=== PATIENT | female | born 1965 | race American Indian/Alaskan Native ===

== ENCOUNTER 2016-03-13 10:39 | Emergency (ER) | payer OTHER ==
--- NOTE | 2016-03-13 11:45 | Emergency Department Report ---
- General Chief Complaint: Upper Respiratory Infection Stated Complaint: PAINFUL LUNGS Time Seen by Provider: 03/13/16 11:23 Source: patient, family Mode of arrival: Ambulatory Limitations: No Limitations - History of Present Illness MD Complaint: fever, cough -: Gradual - Related Data Previous Rx's Medication Instructions Recorded Last Taken Type HYDROcodone/APAP 5-325 [[place] 1 - 2 each PO Q6HR PRN #12 tablet 09/25/15 Unknown Rx 5/325] Ondansetron [Zofran ODT TAB] 8 mg PO Q8HR #20 tab.rapdis 09/25/15 Unknown Rx ALBUTEROL Inhaler [ProAir HFA 2 puff IH QID PRN #1 inhalation 03/13/16 Unknown Rx Inhaler] Azithromycin [Zithromax Z-WILLIAM] 250 mg PO QDAY #6 tablet 03/13/16 Unknown Rx Allergies Allergy/AdvReac Type Severity Reaction Status Date / Time codeine Allergy Rash Verified 03/22/15 11:56 amoxicillin trihydrate AdvReac Rash Verified 03/22/15 11:57 [From Augmentin] potassium clavulanate AdvReac Rash Verified 03/22/15 11:57 [From Augmentin] ED Review of Systems ROS: Stated complaint: PAINFUL LUNGS Other details as noted in HPI Constitutional: chills, fever Eyes: denies: eye pain, eye discharge, vision change ENT: denies: ear pain, throat pain Respiratory: cough Cardiovascular: denies: chest pain, palpitations Endocrine: no symptoms reported Gastrointestinal: denies: abdominal pain, nausea, diarrhea Genitourinary: denies: urgency, dysuria, discharge Musculoskeletal: denies: back pain, joint swelling, arthralgia, myalgia Skin: denies: rash, lesions Neurological: denies: headache ED Past Medical Hx - Past Medical History Previous Medical History?: Yes Hx Asthma: Yes - Surgical History Past Surgical History?: No Additional Surgical History: Stomach (exploratory laparotomy) - Social History Smoking Status: Never Smoker Substance Use Type: None - Medications Home Medications: Home Medications Medication Instructions Recorded Confirmed Last Taken Type HYDROcodone/APAP 5-325 [[place] 1 - 2 each PO Q6HR PRN #12 tablet 09/25/15 Unknown Rx 5/325] Ondansetron [Zofran ODT TAB] 8 mg PO Q8HR #20 tab.rapdis 09/25/15 Unknown Rx ALBUTEROL Inhaler [ProAir HFA 2 puff IH QID PRN #1 inhalation 03/13/16 Unknown Rx Inhaler] Azithromycin [Zithromax Z-WILLIAM] 250 mg PO QDAY #6 tablet 03/13/16 Unknown Rx ED Physical Exam - General Limitations: No Limitations General appearance: alert, in no apparent distress - Head Head exam: Present: atraumatic, normocephalic - Eye Eye exam: Present: normal appearance - ENT ENT exam: Present: mucous membranes moist - Neck Neck exam: Present: normal inspection - Respiratory Respiratory exam: Present: normal lung sounds bilaterally. Absent: respiratory distress, wheezes, rales, rhonchi, stridor, accessory muscle use, decreased breath sounds, prolonged expiratory - Cardiovascular Cardiovascular Exam: Present: regular rate - Back Exam Back exam: Absent: CVA tenderness (R), CVA tenderness (L) - Neurological Exam Neurological exam: Present: alert, oriented X3 ED Course Vital Signs 03/13/16 10:48 Temperature 98.1 F Pulse Rate 69 Respiratory 16 Rate Blood Pressure 109/72 O2 Sat by Pulse 100 Oximetry Critical care attestation.: If time is entered above; I have spent that time in minutes in the direct care of this critically ill patient, excluding procedure time. ED Disposition Clinical Impression: URI (upper respiratory infection) Disposition: DISCHARGED TO HOME OR SELFCARE Is pt being admited?: No Does the pt Need Aspirin: No Condition: Stable Instructions: Upper Respiratory Infection (ED) Prescriptions: ALBUTEROL Inhaler [ProAir HFA Inhaler] 2 puff IH QID PRN #1 inhalation PRN Reason: Shortness Of Breath Azithromycin [Zithromax Z-WILLIAM] 250 mg PO QDAY #6 tablet Referrals: PRIMARY CARE, [Primary Care Provider] - 3-5 Days Forms: Work/School Release Form(ED)
[2016-03-13 11:58] VITALS: BP 145/78
--- NOTE | 2016-03-13 12:49 | XRay Report ---
Chest 2 views: Compared to 03/22/15. History: Cough. Findings: Normal cardiomediastinal silhouette. Trachea is midline. No consolidation, pneumothorax or pleural effusion. Impression: No acute cardiopulmonary findings.
== END 2016-03-13 11:47 | disposition home or self-care (01) ==
LOC: ED 10:39
DX: J06.9 Acute upper respiratory infection, unspecified (principal); J45.909 Unspecified asthma, uncomplicated
CPT/HCPCS: 71020

== ENCOUNTER 2016-03-30 08:08 | Emergency (ER) | payer SELFPAY ==
[2016-03-30 09:29] LABS: Hematocrit 34.4 % (30.3-42.9); Hemoglobin 10.7 gm/dl (10.1-14.3); Mean Corpuscular HGB Conc 31 % (30-34); Mean Corpuscular Hemoglobin 24 pg (28-32); Mean Corpuscular Volume 78 fl (79-97); Platelet Count 177 K/mm3 (140-440); Red Cell Distribution Width 14.4 % (13.2-15.2); White Blood Count 3.1 K/mm3 (4.5-11.0)
[2016-03-30 09:45] LABS: Anion Gap 17 mmol/L; BUN/Creatinine Ratio 15.71; Blood Urea Nitrogen 11 mg/dL (7-17); Calcium 8.3 mg/dL (8.4-10.2); Carbon Dioxide 24 mmol/L (22-30); Glucose 69 mg/dL (65-100); Potassium 4.2 mmol/L (3.6-5.0); Sodium 139 mmol/L (137-145)
[2016-03-30 09:51] LABS: INR 0.98 (0.87-1.13)
[2016-03-30 09:52] LABS: Partial Thromboplastin Time 25.7 Sec. (24.2-36.6)
[2016-03-30 10:03] LABS: Basophils % (Manual) 0 % (0.0-1.8); Blastocytes % (Manual) 0 %
[2016-03-30 10:04] LABS: Hypochromasia 1+
[2016-03-30 10:05] LABS: Diff Status Complete; Elliptocytes 1+; Platelet Estimate Appears Decreased; Poikilocytosis 1+
--- NOTE | 2016-03-30 10:06 | Cat Scan Report ---
CT HEAD WITHOUT CONTRAST: HISTORY: Neurological deficits, syncope. Serial contiguous axial images were obtained through the cranium. Intravenous contrast material was not administered. The ventricles are normal in size and appearance. There is no mass effect or midline shift. No areas of abnormally increased or decreased attenuation are seen. No mass lesion is seen. The mastoid air cells and visualized portions of the sinuses are normal. A single left ethmoid air cell is opacified. IMPRESSION: Cranial CT scan within normal limits. No significant change since 09/25/15.
[2016-03-30] MEDS ORDERED: NACL 0.9% 1000 ML 1,000 ML IV ONE (16:59)
[2016-03-30] MEDS ORDERED: TYLENOL PO ONE (17:02)
[2016-03-30] MEDS ORDERED: ZOFRAN ODT PO ONE (17:02)
[2016-03-30 18:15] VITALS: BP 99/54
--- NOTE | 2016-03-30 19:14 | Emergency Department Report ---
HPI - General Chief Complaint: Syncope Time Seen by Provider: 03/30/16 16:41 - HPI HPI: The patient is a 50-year-old female who presents for evaluation of lightheadedness. The patient reports on and off lightheadedness for the past 3 days, exacerbated with standing and exertion, moderate to severe, improved with sitting and lying down and rest. She shares that she passed out 3 days ago after walking back from her bathroom in [place]. She also reports a mild achy generalized headache constant since her accident. The patient denies fever, neck pain, chest pain, dyspnea, abdominal pain, hemoptysis, unilateral leg swelling, recent immobilization, history of DVT or PE, recent cancer. ED Past Medical Hx - Past Medical History Hx Asthma: Yes - Surgical History Additional Surgical History: Stomach (exploratory laparotomy) - Social History Smoking Status: Never Smoker Substance Use Type: None - Medications Home Medications: Home Medications Medication Instructions Recorded Confirmed Last Taken Type HYDROcodone/APAP 5-325 [[place] 1 - 2 each PO Q6HR PRN #12 tablet 09/25/15 Unknown Rx 5/325] Ondansetron [Zofran ODT TAB] 8 mg PO Q8HR #20 tab.rapdis 09/25/15 Unknown Rx ALBUTEROL Inhaler [ProAir HFA 2 puff IH QID PRN #1 inhalation 03/13/16 Unknown Rx Inhaler] Azithromycin [Zithromax Z-WILLIAM] 250 mg PO QDAY #6 tablet 03/13/16 Unknown Rx ED Review of Systems ROS: Stated complaint: PASSED OUT 3 DAYS AGO Other details as noted in HPI Constitutional: denies: fever; reports lightheadedness and syncope ENT: denies: throat or neck pain Respiratory: denies: cough, shortness of breath Cardiovascular: denies: chest pain Endocrine: denies unexplained weight loss or gain Gastrointestinal: denies: abdominal pain, nausea Genitourinary: denies: dysuria Musculoskeletal: denies: leg swelling Skin: denies: rash Neurological: denies: headache Hematological/Lymphatic: denies: easy bleeding or easy bruising Psych: denies sadness or hopelessness Physical Exam - Physical Exam Vital Signs: Vital Signs 03/30/16 03/30/16 08:55 17:26 Temperature 98.7 F Pulse Rate 68 Respiratory 18 14 Rate Blood Pressure 97/51 O2 Sat by Pulse 100 Oximetry Physical Exam: General: well-nourished, well-developed, no acute distress Head: Normocephalic, atraumatic Eyes: normal sclera, EOMI, PERRL ENT: Mucous membranes are pale and dry Neck: No neck stiffness, no cervical adenopathy Respiratory: Breath sounds equal bilaterally, no wheezing, rales, or rhonchi Cardio: S1 and S2 present, no murmurs, rubs, gallops, capillary refill is delayed Abdomen: Normoactive bowel sounds, soft abdomen, no rigidity, no guarding or rebound tenderness Musc: No pitting edema Skin: No rash Neuro: Alert oriented 3, no facial drooping, normal speech, no sensation and motor deficit in the arms or legs, reflexes 2+ symmetric on DTR testing, no neuro deficits Psych: Normal affect ED Course Vital Signs 03/30/16 03/30/16 08:55 17:26 Temperature 98.7 F Pulse Rate 68 Respiratory 18 14 Rate Blood Pressure 97/51 O2 Sat by Pulse 100 Oximetry ED Medical Decision Making - Lab Data Result diagrams: 03/30/16 09:18 03/30/16 09:18 - Medical Decision Making The patient was seen and examined by myself. The patient is placed on a traffic monitor specialist and continuous pulse ox. On initial evaluation, the patient was found to be in no distress, with borderline hypertension, SBP in 90s. Evaluation orders were placed. The patient is given a tablet of Tylenol for headache, and 1 L normal saline fluid bolus for treatment of dehydration. CAT scan the head is negative for acute intracranial disease process. EKG is negative for arrhythmia. Lab results are unremarkable. The patient was reevaluated and reported that their symptoms were markedly improved. The patient is stable for discharge with outpatient follow-up. The patient is given follow-up and return instructions. The patient expressed understanding and agreed with the plan. The patient is discharged in stable condition. Critical care attestation.: If time is entered above; I have spent that time in minutes in the direct care of this critically ill patient, excluding procedure time. ED Disposition Clinical Impression: Dehydration, Syncope and collapse, Orthostatic syncope Disposition: DISCHARGED TO HOME OR SELFCARE Is pt being admited?: No Does the pt Need Aspirin: No Condition: Stable Instructions: Syncope (ED), Dehydration (ED), Near Syncope (ED) Referrals: DR TANISHA [Other] - 3-5 Days Time of Disposition: 18:01
== END 2016-03-30 18:26 | disposition home or self-care (01) ==
LOC: ED 08:08
DX: E86.0 Dehydration (principal); R55 Syncope and collapse; J45.909 Unspecified asthma, uncomplicated
CPT/HCPCS: 36415; 70450; 80048; 82962; 84484; 85007; 85025; 85610; 85670; 85730; 93005; 93010; 96360; 99285; J7030; Q0162